=== PATIENT | male | born 1940 | race Caucasian/White ===

== ENCOUNTER → 2017-03-30 | Outpatient (REF) | payer OTHER ==
[~2017-03-30] MED LIST: ACET65TA OR; BABY81CH OR; CIPR500T4 OR; COLA100C2 OR; COMBVENT INH; GLUC1000 OR; INSULANT SC; LEVA750T OR; LISI20TA5 OR; LOPR50TA OR; NOVOLOG100 MG/ML SC; NYSTATIN ORAL OR; OMEP20TA7 OR
== END ==
LOC: M LAB REF 17:06
PROVIDERS: ATTEND Internal Medicine Nephrology
DX: R80.9 Proteinuria, unspecified (principal)